=== PATIENT | female | born 1935 | race Caucasian/White ===

== ENCOUNTER 2019-09-15 10:23 | Emergency (ER) | payer MEDICARE, OTHER ==
[2019-09-15 10:45] LABS: BASOPHILS % (AUTO) 0.6 % (0.0-5.0); EOSINOPHILS % (AUTO) 3.7 % (0.0-8.0); LYMPHOCYTES % (AUTO) 20.4 % (21.0-51.0); MEAN CORPUSCULAR HEMOGLOBIN 28.3 pg (27.0-33.0); MEAN CORPUSCULAR HGB CONC 32.9 g/dL (32.0-36.0); MONOCYTES % (AUTO) 8.7 % (3.0-13.0); NEUTROPHILS % (AUTO) 66.2 % (40.0-77.0); PLATELET COUNT (AUTO) 362 K/uL (130-400); RED BLOOD CELL COUNT(AUTO) 5.23 MIL/uL (4.00-5.50); RED CELL DISTRIBUTION WIDTH 14.7 % (11.0-15.5); WHITE BLOOD COUNT (AUTO) 8.1 K/uL (4.8-10.8)
[2019-09-15 10:55] LABS: CREATININE 0.5 mg/dL (0.5-1.5)
[2019-09-15 11:00] LABS: ALBUMIN 3.6 g/dL (3.5-5.0); BILIRUBIN,TOTAL 0.5 mg/dL (0.2-1.0); TOTAL PROTEIN, SERUM 7.3 g/dL (6.0-8.3)
[2019-09-15] MEDS ORDERED: KETOROLAC TROMETHAMINE 15MG/ML ONE (11:20)
[2019-09-15] MEDS ORDERED: HYDROMORPHONE 1 MG/1 ML AMP ONE ×2 (11:21→14:30)
[2019-09-15 11:32] LABS: APPEARANCE,URINE Clear (CLEAR); BILIRUBIN,URINE Negative (NEGATIVE); COLOR,URINE Yellow (YELLOW); GLUCOSE, URINE (UA) Negative (NEGATIVE); KETONES,URINE Negative (NEGATIVE); LEUKOCYTE ESTERASE ,URINE Trace (NEGATIVE); NITRATE,URINE Negative (NEGATIVE); OCCULT BLOOD,URINE Negative (NEGATIVE); PROTEIN,URINE Negative (NEGATIVE)
[2019-09-15 11:51] LABS: BACTERIA,URINE Rare /HPF (None Seen); RBC,URINE 0-1 /HPF (0-1); SQUAMOUS EPITHELIAL CELL,UR Rare /HPF (0-2); WBC,URINE 0-1 /HPF (0-1)
== END 2019-09-15 14:55 | disposition home or self-care (01) ==
LOC: EDH 10:23
DX: M48.54XA Collapsed vertebra, not elsewhere classified, thoracic region, initial encounter for fracture (principal); M48.56XA Collapsed vertebra, not elsewhere classified, lumbar region, initial encounter for fracture
CPT/HCPCS: 36415; 72128; 72131; 80053; 81001; 85025; 93005; 96374; 96375; 96376; 99285; J1170 ×2; J1885

== ENCOUNTER 2019-12-07 07:00 | Day surgery (SDC) | payer MEDICARE, OTHER ==
[2019-12-04 11:05] LABS: BASOPHILS % (AUTO) 0.6 % (0.0-5.0); HEMATOCRIT 44.1 % (36-48); LYMPHOCYTES % (AUTO) 25.1 % (21.0-51.0); MEAN CORPUSCULAR HEMOGLOBIN 28.9 pg (27.0-33.0); MEAN CORPUSCULAR HGB CONC 32.7 g/dL (32.0-36.0); MEAN CORPUSCULAR VOLUME 88.4 fL (79-99); MONOCYTES % (AUTO) 6.2 % (3.0-13.0); NEUTROPHILS % (AUTO) 67.5 % (40.0-77.0); PLATELET COUNT (AUTO) 304 K/uL (130-400); RED BLOOD CELL COUNT(AUTO) 4.99 MIL/uL (4.00-5.50); RED CELL DISTRIBUTION WIDTH 13.4 % (11.0-15.5)
[2019-12-04 11:17] LABS: CREATININE 0.5 mg/dL (0.5-1.5); POTASSIUM 3.7 mmol/L (3.5-5.1)
--- NOTE | 2019-12-04 15:51 | NUR ---
EKG ABNORMAL EKG REPORTED TO DR. CORDOBA. NO FURTHER ORDERS GIVEN, OK TO PROCEED WITH SX
[2019-12-06 12:15] VITALS: BP 162/97
[2019-12-07] VITALS (17 sets, daily range): BP systolic 139–158; BP diastolic 78–95
[~2019-12-07] VITALS: Ht 158.8 cm; Wt 52.2 kg
[~2019-12-07 07:00] MED LIST: ALBU0.63 IH; ALBU1.252 IH; ATOR10TA69 PO; BUDE10.2 IH; CEPH500C2 PO; FENT-77 TD; HYDR12.54 PO; LEVO100T4 PO; METO-408 PO; OMEP20TA25 PO; OXYB10TA30 PO; THEO400T3 PO; TIOT18CA3 IH; VITS1TAB2 PO
[2019-12-07] MEDS ORDERED: LACTATED RINGERS 1000ML 1,000 ML IV ONE (07:57)
[2019-12-07] MEDS ORDERED: MIDAZOLAM HCL 1 MG/ML 2ML VIAL ONE ×2 (08:17→09:17)
[2019-12-07] MEDS ORDERED: FENTANYL CITRATE PF 50 MCG/1 ML 2ML VIAL ONE (08:17)
[2019-12-07] MEDS ORDERED: LIDOCAINE HCL 1% 20 ML VIAL ONE (08:39)
--- NOTE | 2019-12-07 08:48 | NUR ---
STRAIGHT CATH pt straight cath self 2 times daily Addendum: 12/07/19 at 0849 by YRN HAIDER RN RN Amended: Links added.
[2019-12-07] MEDS: CLINDAMYCIN 900 MG/D5% WATER 50 ML IV PRN ×2 (08:53→09:00)
--- NOTE | 2019-12-07 10:35 | NUR ---
PATIENT ARRIVED TO DAY PATIENT VIA STRETCHER BY NEMESIO AKBAR. PATIENT AAOX3, RESPIRATIONS UNLABORED, VITAL SIGNS STABLE, DENIES ANY PAIN AT THIS TIME. GUZMAN CATHETER IN PLACE DRAINING PALE YELLOW URINE. BANDAIDS X2 IN PLACE TO UPPER BACK, NO DRAINAGE OR BLEEDING NOTED.
--- NOTE | 2019-12-07 13:05 | NUR ---
DISCHARGE INSTRUCTIONS PROVIDED TO PATIENT AND FOLLOW UP APPOINTMENT PROVIDED WELL. INSTRUCTIONS PROVIDED ON SPINE SURGERY AFTER CARE AND HANDOUT PROVIDED WELL. PRESCRIPTIONS PROVIDED TO PATIENT AND INSTRUCTED ON NEW MEDICATION WELL. PATIENT VERBALIZED UNDERSTANDING AND ALL QUESTIONS/CONCERNS ADDRESSED.
--- NOTE | 2019-12-07 14:00 | NUR ---
GUZMAN CATHETER DISCONTINUED, CATHETER INTACT. PATIENT TOLERATED WELL.
--- NOTE | 2019-12-07 14:15 | NUR ---
PATIENT DISCHARGED FROM FACILITY VIA WHEELCHAIR BY NURSE (TENZIN). PATIENT ASSISTED INTO PRIVATE VEHICLE DRIVEN BY SPOUSE.
== END 2019-12-07 14:15 | disposition home or self-care (01) ==
LOC: DAH 07:00
PROVIDERS: ATTEND Neurological Surgery
DX: M80.88XA Other osteoporosis with current pathological fracture, vertebra(e), initial encounter for fracture (principal); J44.9 Chronic obstructive pulmonary disease, unspecified; I49.1 Atrial premature depolarization; K21.9 Gastro-esophageal reflux disease without esophagitis; I10 Essential (primary) hypertension; Z79.899 Other long term (current) drug therapy
CPT/HCPCS: 22510; 36415; 71045; 72074; 80048; 85025; 93005; A4215 ×2; A4221; A4222; A4223; A4663; A6260; C1776; J2250 ×2; J3010; J3490; J7120

== ENCOUNTER → 2020-05-23 | Outpatient (CLI) | payer MEDICARE, OTHER ==
[~2020-05-23] MED LIST changes: +IOHEXOL-350 75 ML VIAL IV ONE
== END | disposition home or self-care (01) ==
LOC: RAH 10:27
PROVIDERS: ATTEND Internal Medicine
DX: S22.058A Other fracture of T5-T6 vertebra, initial encounter for closed fracture (principal); S22.068A Other fracture of T7-T8 thoracic vertebra, initial encounter for closed fracture; S22.078A Other fracture of T9-T10 vertebra, initial encounter for closed fracture; S32.019A Unspecified fracture of first lumbar vertebra, initial encounter for closed fracture; T14.8XXA Other injury of unspecified body region, initial encounter; J98.11 Atelectasis; I70.0 Atherosclerosis of aorta; K86.89 Other specified diseases of pancreas; M40.204 Unspecified kyphosis, thoracic region; X58.XXXA Exposure to other specified factors, initial encounter; Y93.89 Activity, other specified; Y92.89 Other specified places as the place of occurrence of the external cause; Y99.8 Other external cause status
CPT/HCPCS: 71260; 74177; Q9967

== ENCOUNTER 2020-07-11 06:22 | Emergency (ER) | payer MEDICARE, OTHER ==
[~2020-07-11] VITALS: Ht 157.5 cm; Wt 45.4 kg
[~2020-07-11 06:22] MED LIST changes: -IOHEXOL-350 75 ML VIAL IV ONE
[2020-07-11] MEDS ORDERED: ONDANSETRON HCL 4 MG/2 ML VIAL ONE ×2 (07:34→09:51)
[2020-07-11] MEDS ORDERED: MORPHINE SULFATE 2 MG/ML 1ML SYG ONE (07:34)
[2020-07-11 07:42] LABS: BASOPHILS % (AUTO) 0.3 % (0.0-5.0); HEMATOCRIT 43.4 % (36-48); LYMPHOCYTES % (AUTO) 4.5 % (21.0-51.0); MEAN CORPUSCULAR HEMOGLOBIN 29.5 pg (27.0-33.0); MEAN CORPUSCULAR HGB CONC 33.9 g/dL (32.0-36.0); MEAN CORPUSCULAR VOLUME 87.1 fL (79-99); NEUTROPHILS % (AUTO) 82.9 % (40.0-77.0); PLATELET COUNT (AUTO) 206 K/uL (130-400); RED BLOOD CELL COUNT(AUTO) 4.98 MIL/uL (4.00-5.50); RED CELL DISTRIBUTION WIDTH 13.8 % (11.0-15.5); WHITE BLOOD COUNT (AUTO) 8.7 K/uL (4.8-10.8)
[2020-07-11 07:58] LABS: ALBUMIN 3.5 g/dL (3.5-5.0); BILIRUBIN,TOTAL 0.8 mg/dL (0.2-1.0); CREATININE 0.5 mg/dL (0.5-1.5); POTASSIUM 3.5 mmol/L (3.5-5.1)
[2020-07-11 08:02] LABS: PARTIAL THROMBOPLASTIN TIME 24.3 SEC (26.3-35.5); PROTHROMBIN TIME 10.8 SEC (9.6-11.6)
[2020-07-11 08:32] LABS: APPEARANCE,URINE Clear (CLEAR); BILIRUBIN,URINE Negative (NEGATIVE); COLOR,URINE Yellow (YELLOW); GLUCOSE, URINE (UA) Negative (NEGATIVE); KETONES,URINE Negative (NEGATIVE); LEUKOCYTE ESTERASE ,URINE Trace (NEGATIVE); NITRATE,URINE Negative (NEGATIVE); OCCULT BLOOD,URINE Negative (NEGATIVE); PH,URINE 6.5 (5.0-8.0); PROTEIN,URINE Negative (NEGATIVE)
[2020-07-11 08:43] LABS: BACTERIA,URINE Moderate /HPF (None Seen); RBC,URINE 0-1 /HPF (0-1); SQUAMOUS EPITHELIAL CELL,UR Rare /HPF (0-2); WBC,URINE 0-1 /HPF (0-1)
[2020-07-11 08:48] LABS: ERYTHROCYTE SEDIMENTATION RATE 1 MM/HR (0-30)
[2020-07-11] MEDS ORDERED: MECLIZINE HCL 25 MG TABLET ONE (09:51)
[2020-07-11] MEDS ORDERED: LEVOFLOXACIN 500 MG TABLET PO SCH (11:00)
[2020-07-11] MEDS ORDERED: LEVOFLOXACIN 500 MG TABLET ONE (11:10)
== END 2020-07-11 11:31 | disposition home or self-care (01) ==
LOC: EDH 06:22
DX: S22.000A Wedge compression fracture of unspecified thoracic vertebra, initial encounter for closed fracture (principal); S32.010A Wedge compression fracture of first lumbar vertebra, initial encounter for closed fracture; N39.0 Urinary tract infection, site not specified; M54.40 Lumbago with sciatica, unspecified side; J44.9 Chronic obstructive pulmonary disease, unspecified; G89.29 Other chronic pain; M54.6 Pain in thoracic spine; X58.XXXA Exposure to other specified factors, initial encounter; Y93.89 Activity, other specified; Y92.89 Other specified places as the place of occurrence of the external cause; Y99.8 Other external cause status; Z72.0 Tobacco use
CPT/HCPCS: 36415; 72128; 72131; 80053; 81001; 83605; 85025; 85610; 85651; 85730; 87040 ×2; 87077; 87088; 87186; 96374; 96375; 99285; J2405 ×2